=== PATIENT | male | born 1955 | race Asian ===

== ENCOUNTER 2024-06-24 15:06 | Emergency (ER) | payer OTHER, MEDICARE ==
[~2024-06-24] VITALS: Ht 172.7 cm; Wt 88.0 kg
[2024-06-24 15:13] VITALS: TEMP 98.4
[2024-06-24] MEDS ORDERED: EMPA25TA3 PO (15:14)
[2024-06-24] MEDS ORDERED: LISI-892 PO (15:14)
[2024-06-24] MEDS ORDERED: ROSU40TA88 PO (15:14)
[2024-06-24] MEDS ORDERED: METF-1211 PO (15:14)
[2024-06-24] MEDS ORDERED: GLIP5TAB16 PO (15:14)
[2024-06-24 15:55] VITALS: BP 134/66; PULSE 78; RESP 16; O2SAT 100
[2024-06-24] MEDS ORDERED: IBUP-1492 PO (16:21)
== END 2024-06-24 16:32 | disposition home or self-care (01) ==
LOC: EMS 15:06
DX: S90.121A Contusion of right lesser toe(s) without damage to nail, initial encounter (principal); E11.9 Type 2 diabetes mellitus without complications; E78.00 Pure hypercholesterolemia, unspecified; I10 Essential (primary) hypertension; X58.XXXA Exposure to other specified factors, initial encounter; Y93.89 Activity, other specified; Y92.89 Other specified places as the place of occurrence of the external cause; Y99.8 Other external cause status
CPT/HCPCS: 82962; 99283